=== PATIENT | male | born 1980 | race Caucasian/White ===

== ENCOUNTER 2016-12-23 21:06 | Observation (INO) ==
[2016-12-24 00:03] LABS: Basophils # 0.1 K/mcL (0.0-0.2); Basophils % 0.6 %; Eosinophils # 0.3 K/mcL (0.0-0.6); Hemoglobin 13.3 g/dL (12.9-16.9); Immature Granulocytes % 0.5 % (0-4); Lymphocytes # 3.2 K/mcL (0.6-4.6); Lymphocytes % 31.6 %; Mean Corpuscular HGB Conc 34.1 g/dL (31.6-35.5); Mean Corpuscular Hemoglobin 29.4 pg (28.0-33.3); Mean Corpuscular Volume 86.1 fL (83.0-100.0); Mean Platelet Volume 8.2 fL (9.4-12.4); Monocytes # 0.8 K/mcL (0.0-1.3); Monocytes % 8.3 %; Neutrophils # 5.7 K/mcL (1.6-8.9); Platelet Count 282 K/mcL (140-400); Red Blood Count 4.53 M/mcL (4.19-5.50); Red Cell Distribution Width 11.7 % (11.5-14.5)
--- NOTE | 2016-12-24 00:13 | Emergency Department Note ---
Disposition Clinical Impression: Right forearm cellulitis Disposition: Admitted As Inpatient Condition: Good Time of Disposition: 07:40 Skin/Abscess/FB HPI Chief complaint: ED Skin/Abscess/Foreign Body Stated complaint: "Abcess on Right Arm" Time Seen by Provider: 12/23/16 22:58 Source: patient Mode of arrival: ambulatory Limitations: no limitations Nursing Notes Reviewed: Yes Vital Signs Reviewed: Yes HPI Narrative: Patient is a 36-year-old male with past medical history of IV drug use. He presents today due to right forearm abscess. Patient states that this is not present for several days. He was recently an inpatient rehabilitation facility was receiving treatment there, also received PO antibiotics for right forearm abscess. He states that he was discharged what issue days ago and was not sent home with any antibiotics. He said that the abscess "burst "and drained a lot of pus within the past 24 hours. He has noticed significantly worsened pain, redness that is now tracking to his forearm, upper arm up to the axilla, and swelling. He does admit to injecting heroin in the region of the abscess. He is also injected meth and that same arm. Denies any loss of needles in the extremity. Denies any nausea, vomiting, fevers, abdominal pain, chest pain, shortness of breath. Previous Rx's Medication Instructions Recorded Hydrocodone/Acetaminophen [[place] 1 - 2 each PO Q6H PRN #15 tablet 09/06/15 5-325 Tablet] Aloe Vera 170 gm TP QID 5 Days 04/28/16 Ibuprofen [Motrin] 800 mg PO Q8HR #30 tablet 04/28/16 Amoxicillin/Clavulanate [Augmentin] 875 mg PO BIDWM 7 Days 06/27/16 Sulfamethoxazole/Trimeth DS 1 each PO BID 7 Days 06/27/16 [Bactrim DS] Allergies Allergy/AdvReac Type Severity Reaction Status Date / Time No Known Allergies Allergy Verified 09/06/15 13:44 Constitutional: Denies: fever Eyes: Denies: eye pain, eye discharge ENT ED: Denies: ear pain, throat pain Cardiovascular: Denies: chest pain, palpitations Respiratory: Denies: cough, dyspnea, wheezes, hemoptysis Gastrointestinal: Denies: abdominal pain, nausea, vomiting, diarrhea Genitourinary: Denies: urgency, dysuria, frequency Musculoskeletal: Denies: back pain, neck pain, joint swelling Integumentary: Reports: lesions. Denies: rash Neurological: Denies: headache, weakness, numbness, paresthesias Past Medical History - Past Medical History Attestation: Yes The following information was validated with the patient. Medical history: Reports: non-contributory, hepatitis Surgical history: Reports: no surgical history Psychiatric history: Reports: no psych history - Social History Smoking Status: Current every day smoker Smokeless Tobacco Status: No Alcohol use: Reports: none Drug use: Reports: none Physical Exam - General Limitations: no limitations General appearance: alert, in no apparent distress - Head Head exam: atraumatic, normocephalic, normal inspection - Eye Eye exam: Present: normal appearance, PERRL, EOMI - ENT ENT exam: normal exam, normal oropharynx, mucous membranes moist - Neck Neck exam: Present: normal inspection, full ROM, trachea midline - Chest Chest inspection: Present: normal inspection, symmetric chest wall rise - Respiratory Respiratory exam: Present: normal lung sounds bilaterally - Cardiovascular Cardiovascular exam: Present: regular rate, normal rhythm, normal heart sounds - Abdominal Exam Abdominal exam: Present: soft, Non-Tender. Absent: tenderness, distention, guarding, rebound, rigidity - Extremities Exam Extremities exam: Present: other (Patient has a large area of induration of the right medial forearm approximately 10 cm x 5 cm, erythema tracking distally to the hand and proximally up to the axilla. Also has swelling of the right hand. Tender to palpation.) - Back Exam Back exam: Present: normal inspection, full ROM. Absent: tenderness - Neurological Exam Neurological exam: Present: alert, oriented X3. Absent: motor sensory deficit - Psychiatric Psychiatric exam: Present: normal affect, normal mood - Skin Skin exam: Present: warm, dry, intact, normal color Course Course Narrative: Vitals WNL. Physical exam shows : Patient has a large area of induration of the right medial forearm approximately 10 cm x 5 cm, erythema tracking distally to the hand and proximally up to the axilla. Also has swelling of the right hand. Tender to palpation. We will obtain basic blood work, blood cultures, CT of the right forearm with contrast. We will start in about a comfortable culture is drawn. CT showed Small subcutaneous abscess along the proximal aspect of the forearm. Started vanc and zosyn. Admitted for right forearm cellulitis. Forearm CT 12/24/16 23:17 IMPRESSION: Small subcutaneous abscess along the proximal aspect of the forearm. D/ / Micha Nash MD / Micha Nash MD Interpreting Provider: Micha Nash MD Vital Signs Temperature 98.1 F 12/23/16 21:20 Pulse Rate 95 12/23/16 21:20 Respiratory Rate 18 12/23/16 21:20 Blood Pressure 128/89 12/23/16 21:20 O2 Sat by Pulse Oximetry 97 12/23/16 21:20 Temperature 97.6 F 12/24/16 04:00 Pulse Rate 78 12/24/16 04:00 Respiratory Rate 18 12/24/16 04:00 Blood Pressure 119/71 12/24/16 04:00 O2 Sat by Pulse Oximetry 99 12/24/16 05:38 Oxygen Delivery Oxygen Delivery Room Air Skin/Abscess/Foreign Body - MDM Narrative Medical decision making narrative: Vitals WNL. Physical exam shows : Patient has a large area of induration of the right medial forearm approximately 10 cm x 5 cm, erythema tracking distally to the hand and proximally up to the axilla. Also has swelling of the right hand. Tender to palpation. We will obtain basic blood work, blood cultures, CT of the right forearm with contrast. We will start in about a comfortable culture is drawn. CT showed Small subcutaneous abscess along the proximal aspect of the forearm. Started vanc and zosyn. Admitted for right forearm cellulitis. - Lab Data Lab results reviewed: Yes I reviewed the patient's lab results. Result diagrams: 12/23/16 23:55 12/23/16 23:55 Lab Results 12/23/16 12/23/16 12/23/16 Range/Units 23:55 23:55 23:55 WBC 10.1 (4.3-11.1) K/mcL RBC 4.53 (4.19-5.50) M/mcL Hgb 13.3 (12.9-16.9) g/dL Hct 39.0 (37.5-50.1) % MCV 86.1 (83.0-100.0) fL MCH 29.4 (28.0-33.3) pg MCHC 34.1 (31.6-35.5) g/dL RDW 11.7 (11.5-14.5) % Plt Count 282 (140-400) K/mcL MPV 8.2 L (9.4-12.4) fL Immature Gran % 0.5 (0-4) % Seg Neutrophils % 56.0 % Lymphocytes % 31.6 % Monocytes % 8.3 % Eosinophils % 3.0 % Basophils % 0.6 % Neutrophils # 5.7 (1.6-8.9) K/mcL Lymphocytes # 3.2 (0.6-4.6) K/mcL Monocytes # 0.8 (0.0-1.3) K/mcL Eosinophils # 0.3 (0.0-0.6) K/mcL Basophils # 0.1 (0.0-0.2) K/mcL ESR 30 H (0-10) mm/hr Sodium 139 (136-145) mEq/L Potassium 4.2 (3.5-4.5) mEq/L Chloride 104 (98-109) mEq/L Carbon Dioxide 28 (19-29) mEq/L BUN 17 (8-26) mg/dL Creatinine 1.09 (0.72-1.25) mg/dL Est GFR ( Amer) > 60 (> 60) Est GFR (Non-Af Amer) > 60 (> 60) BUN/Creatinine Ratio 16 (6-26) Glucose 171 H (70-99) mg/dL Calculated Osmolality 294 (280-300) Calcium 9.1 (8.6-10.8) mg/dL C-Reactive Protein 27 H (Less than 5) mg/L - Radiology Data Radiology results reviewed: Yes I reviewed the patient's radiology results. Forearm CT 12/24/16 23:17 IMPRESSION: Small subcutaneous abscess along the proximal aspect of the forearm. D/ / Micha Nash MD / Micha Nash MD Interpreting Provider: Micha Nash MD S.B.A.R. - S.B.A.R. Situation: Demographics, MOA Background: Presenting Complaint, Relevant PMH, Meds, & Allergies Assessment: Vital Signs, Course and respsone to treatment, Exam Concerns, Patient/Family Expectation, Pertinant Lab Results, Outstanding Labs Recommendation: Barrier(s) to disposition, Recommendation based on pending studies, treatments, or consults S.B.A.R. Report Given to: Dr. Roth Attestation Statement - Attestation Attestation: I, Harrison Nixon MD, personally performed a history and physical exam of the patient and discussed their management with the resident. I reviewed the resident's note and agree with the documented findings, medical decision making , and plan of care. 36-year-old male persisted emergency department with a complaint of an abscess to the right forearm which started about a week ago. He does admit to a history of IV drug abuse. He was admitted 5 days ago to a drug detox program in [place]. He states that while he was there they gave him some oral antibiotics and the symptoms improved. He was discharged from there 2 days ago but was not sent home with antibiotics. Since discharge the abscess got significantly worse and started draining spontaneously yesterday. Today he has increased redness and swelling of the entire arm with red streaks extending up to the axilla and swelling of the forearm and hand. No loss of movement or feeling. He has not noticed any fever. On examination patient is a well-developed well-nourished male in no acute distress. He is alert and oriented 3. There is no cyanosis or diaphoresis. Patient has a large swollen tender area to the proximal right forearm with an open wound and small amount of spontaneous. And drainage. There is erythema extending up the medial aspect of the arm to the axilla. There is also some erythema extending down to the wrist with edema entire arm and hand. Normal neurovascular function. Labs reviewed. CT of the arm showed a small subcutaneous fluid collection of the proximal right forearm with moderate subcutaneous stranding and inflammation. We will consult the hospitalist for admission for IV antibiotics.
[2016-12-24 00:24] LABS: BUN/Creatinine Ratio 16 (6-26); Blood Urea Nitrogen 17 mg/dL (8-26); C-Reactive Protein 27 mg/L (Less than 5); Calcium 9.1 mg/dL (8.6-10.8); Carbon Dioxide 28 mEq/L (19-29); Chloride 104 mEq/L (98-109); Glucose 171 mg/dL (70-99); Osmolality,Calculated 294 (280-300); Potassium 4.2 mEq/L (3.5-4.5); Sodium 139 mEq/L (136-145); eGFR For African Americans > 60 (> 60); eGFR For Non-African Americans > 60 (> 60)
[2016-12-24] MEDS ORDERED: Vancomycin 1,000 MG VIAL ONE (03:00)
[2016-12-24] MEDS ORDERED: Piperacillin/Tazobactam 3.375 GM VIAL IVPB ONE (03:00)
[2016-12-24] MEDS ORDERED: 0.9 % Sodium Chloride 250 ML ONE (03:00)
[2016-12-24] MEDS ORDERED: D5% in Water (Mini-Bag+) 100 ML IVPB ONE (03:00)
--- NOTE | 2016-12-24 05:31 | Internal Med History&Physical ---
<Lis Qureshi - Last Filed: 12/29/16 19:29> Date of Encounter: 12/24/16 Time of Encounter: 05:14 Assessment and Plan (1) Abscess of forearm, right Status: Acute likely secondary to repeated IVDU most likely MRSA start zosyn and vanc IV blood ctx x2 r/o hematologic spread to heart supportive care hold home bactrim after abx initiation of 2-3 days will need I&D dependant on extension of infection into soft tissue and musculature of arm will need either general or orthopedic surgery consult (2) Cellulitis of right upper extremity Status: Acute likely secondary to repeated IVDU most likely MRSA start zosyn and vanc IV blood ctx x2 r/o hematologic spread to heart supportive care hold home bactrim after abx initiation of 2-3 days will need I&D dependant on extension of infection into soft tissue and musculature of arm will need either general or orthopedic surgery consult (3) IVDU (intravenous drug user) Status: Chronic recent use of Heroin meth, crack, cocaine treatment of acute IVD related infection blood ctx for hem spread UDS toradol tyelonol for pain prn phenergan and zofran for nausea prn clonidine for HTN prn hydroxazine for anxiety prn trazadone (4) Heroin addiction Status: Chronic (5) Opiate abuse, continuous Status: Chronic (6) Hepatitis C Status: Chronic Qualifiers: Viral hepatitis chronicity: unspecified Hepatic coma status: without hepatic coma Qualified Code(s): B19.20 - Unspecified viral hepatitis C without hepatic coma Internal Medicine - H&P: HPI Chief complaint: right arm abcess Admitted From: Home Plans for Post Hospital Care: Home History of present illness: Mr. Johnson is a 36 year old male c/o R arm pain with abcess. PMHx of HepC, opiate abuse, IVDU of heroine and meth. Pt states abscess appeared on right elbow about a week ago after one day injecting drugs to that area. At this time is was confined to the elbow. Two days later pt injected meth to the same arm higher up on the same vein which caused infection to spread down to farearm hand and digits and up to the armpit. Pt c/o worsening pain, swelling, redness with decreased elbo flexion, and wrist flexion and extension secondary to pain and swelling. Also has some nausea. Pt recently was in rehab center in [place] where he was being treated for withdrawal and infection. There he received 2 days of Bactrim abx. Pt states he left rehab center "because he wanted to be home and not up in [place]". He left with oral abx, one day later presented to ER. Pt states he had an abscess one other time when he was in snf Pt denies any other hospitalizations or ODs. Pt states entire R arm is sensitive to even light touch. Pt denies headache, fever, chills , numbness/tingling, loss of sensation in RUE, CP,palpitation, SOB. Past Med Surg Social Fam HX - Past Medical History Medical history: hepatitis, other (opiate abuse, IDVU) Psychiatric history: no psych history - Past Surgical History Surgical History: no surgical history - Social History Smoking Status: Current every day smoker Packs per day: 1 Smokeless Tobacco Status: No Alcohol use: none Drug use: cocaine, opiates, marijuana, methamphetamine, IVDU, prescription drug abuse Occupational status: employed Current living situation: Home Internal Medicine - H&P: Meds Buprenorphine HCl/Naloxone HCl [Suboxone 2 mg-0.5 mg Sl Film] 1 each SL BID [History] Gabapentin [Neurontin] 300 mg PO TID 12/24/16 [History] HydrOXYzine Pamoate [Hydroxyzine Pamoate] 25 mg PO TID PRN 12/24/16 [History] Nicotine Patch [Nicoderm] 21 mg TP DAILY 12/24/16 [History] Nicotine Polacrilex [Nicorelief] 4 mg PO Q2H PRN 12/24/16 [History] TraZODone 50 mg PO HS 12/24/16 [History] Sulfamethoxazole/Trimeth DS [Bactrim Ds] 1 each PO BID 7 Days 12/25/16 [Rx] Allergies No Known Allergies Allergy (Verified 09/06/15 13:44) All Systems PM: A 10-system review of systems was performed and is negative for pertinent findings except as documented above in the HPI. - Constitutional Constitutional: no chills, no fever(s), no night sweats - EENT Eyes: no change in vision, no discharge, no pain, no photophobia Ears: no ear discharge, no ear pain, no tinnitus - Cardiovascular Cardiovascular ROS IM: no chest pain, no diaphoresis, no dyspnea, no lightheadedness, no palpitations, no syncope - Respiratory Respiratory: no cough, no dyspnea, no wheezing, no excessive phlegm production - Gastrointestinal Gastrointestinal: nausea, no constipation, no diarrhea, no vomiting - Genitourinary Genitourinary ROS male: no difficulty urinating - Musculoskeletal Musculoskeletal ROS IM: as per HPI - Integumentary Integumentary IM: as per HPI - Neurological Neurological ROS: no confusion, no convulsions, no focal weakness, no numbness, no tingling, no tremor(s) - Constitutional Vitals: Temp Pulse Resp BP Pulse Ox 98.1 F 99 18 122/79 99 12/23/16 21:20 12/24/16 00:25 12/23/16 21:20 12/24/16 00:25 12/24/16 00:25 General appearance: Present: A&O X 3, no acute distress - Head Head exam: Present: atraumatic, normocephalic - Eye Eye exam: Present: EOMI, PERRL, conjuntiva pink, sclera anicteric - ENT ENT exam: Present: mucous membranes moist - Neck Neck exam general surgery: Present: supple, trachea midline. Absent: lymphadenopathy - Respiratory Respiratory exam: Present: CTAB. Absent: accessory muscle use, rales, rhonchi, wheezes - Cardiovascular Cardiovascular exam: Present: RRR, +S1, +S2. Absent: diastolic murmur, gallop, rubs, systolic murmur - GI/Abdominal GI/Abdominal exam: Present: normal bowel sounds, soft, no peritoneal signs. Absent: distended, tenderness - Extremities Exam Extremities exam: Present: normal capillary refill, radial pulses palpable and symetrical - Expanded Upper Extremities Exam Upper Arm exam: Present: erythema, swelling, tenderness Elbow exam: Present: erythema (open area with purulent drainage), pain w/ pronation/supination, swelling, tenderness. Absent: full ROM (decreased elbow extension, inciting pain) Forearm wrist exam: Present: erythema, swelling, tenderness. Absent: full ROM ( decreased wrist flexion and extension, inciting pain) Neuro motor exam: Present: fingers 2-5 abduction intact Neurosensory exam: Present: median nerve intact, radial nerve intact, ulnar nerve intact Vascular exam: Present: normal capillary refill, radial pulse right, radial pulse left - Neurological Exam Neurological exam: Present: CN II-XII intact - Skin Skin exam: Present: erythema, warm (with open wound at r elbow with purulant drainage) Internal Med - H&P Results - Labs CBC & Chem 7: 12/25/16 04:39 12/25/16 04:39 Labs: Short CBC 12/23/16 Range/Units 23:55 WBC 10.1 (4.3-11.1) K/mcL Hgb 13.3 (12.9-16.9) g/dL Hct 39.0 (37.5-50.1) % Plt Count 282 (140-400) K/mcL Neutrophils # 5.7 (1.6-8.9) K/mcL BMP 12/23/16 23:55 Sodium 139 Potassium 4.2 Chloride 104 Carbon Dioxide 28 BUN 17 Creatinine 1.09 Glucose 171 H Calcium 9.1 - Impressions ITS Impressions Forearm CT 12/24/16 23:17 IMPRESSION: Small subcutaneous abscess along the proximal aspect of the forearm. D/ / Micha Nash MD / Micha Nash MD Interpreting Provider: Micha Nash MD <GonzalezLoyd Fernandez - Last Filed: 12/30/16 01:12> Assessment and Plan (1) Polysubstance abuse Status: Chronic . (2) Nicotine dependence with nicotine-induced disorder Status: Acute . Qualifiers: Nicotine product type: cigarettes Qualified Code(s): F17.219 - Nicotine dependence, cigarettes, with unspecified nicotine-induced disorders (3) Abscess of forearm, right Status: Acute . (4) Cellulitis of right upper extremity Status: Acute . (5) Hepatitis C Status: Chronic . Qualifiers: Viral hepatitis chronicity: unspecified Hepatic coma status: without hepatic coma Qualified Code(s): B19.20 - Unspecified viral hepatitis C without hepatic coma (6) Heroin addiction Status: Chronic . (7) IVDU (intravenous drug user) Status: Chronic . (8) Opiate abuse, continuous Status: Chronic . Internal Medicine - H&P: HPI Admitted From: Emergency Dept Plans for Post Hospital Care: Home History of present illness: Mr. Johnson is a 36 year old male is admitted to [facility] via the emergency department when he presented with a chief complaint of the awareness of infection and abscess development in his right arm. The patient acknowledges a history of intravenous drug usage with recent injection of veins in his right arm. He presents at this time after having failed outpatient attempts of treatment. Patient was visited and interviewed and examined. I examined this patient and my medical decision-making was reviewed with the Resident Physician, Dr. Lis Qureshi. For this encounter, I have reviewed the documentation, treatment plan, and medical decision making. I agree with the documented findings, disposition and treatment plan as described except to the extent set forth below. Cumulative laboratory and radiographic database was reviewed, considered and discussed. Given the patient's presenting concerns, past medical history, clinical findings and symptoms, he is admitted at this time to undergo further evaluation and disposition. All Systems PM: A 10-system review of systems was performed and is negative for pertinent findings except as documented above in the HPI. - Constitutional Vitals: Temp Pulse Resp BP Pulse Ox 97.8 F 62 16 97/54 99 12/25/16 11:08 12/25/16 11:08 12/25/16 11:08 12/25/16 11:08 12/25/16 11:08 Internal Med - H&P Results - Labs CBC & Chem 7: 12/25/16 04:39 12/25/16 04:39 Labs: Abnormal lab results MPV 8.9 fL (9.4-12.4) L 12/25/16 04:39 ESR 30 mm/hr (0-10) H 12/23/16 23:55 Potassium 5.2 mEq/L (3.5-4.5) H 12/25/16 04:39 C-Reactive Protein 27 mg/L (Less than 5) H 12/23/16 23:55 Laboratory Last Values WBC 9.1 K/mcL (4.3-11.1) 12/25/16 04:39 RBC 4.54 M/mcL (4.19-5.50) 12/25/16 04:39 Hgb 13.4 g/dL (12.9-16.9) 12/25/16 04:39 Hct 38.9 % (37.5-50.1) 12/25/16 04:39 MCV 85.7 fL (83.0-100.0) 12/25/16 04:39 MCH 29.5 pg (28.0-33.3) 12/25/16 04:39 MCHC 34.4 g/dL (31.6-35.5) 12/25/16 04:39 RDW 11.8 % (11.5-14.5) 12/25/16 04:39 Plt Count 306 K/mcL (140-400) 12/25/16 04:39 MPV 8.9 fL (9.4-12.4) L 12/25/16 04:39 Immature Gran % 0.9 % (0-4) 12/25/16 04:39 Seg Neutrophils % 50.2 % 12/25/16 04:39 Lymphocytes % 37.4 % 12/25/16 04:39 Monocytes % 6.6 % 12/25/16 04:39 Eosinophils % 4.1 % 12/25/16 04:39 Basophils % 0.8 % 12/25/16 04:39 Neutrophils # 4.6 K/mcL (1.6-8.9) 12/25/16 04:39 Lymphocytes # 3.4 K/mcL (0.6-4.6) 12/25/16 04:39 Monocytes # 0.6 K/mcL (0.0-1.3) 12/25/16 04:39 Eosinophils # 0.4 K/mcL (0.0-0.6) 12/25/16 04:39 Basophils # 0.1 K/mcL (0.0-0.2) 12/25/16 04:39 ESR 30 mm/hr (0-10) H 12/23/16 23:55 Sodium 138 mEq/L (136-145) 12/25/16 04:39 Potassium 5.2 mEq/L (3.5-4.5) H 12/25/16 04:39 Chloride 107 mEq/L (98-109) 12/25/16 04:39 Carbon Dioxide 24 mEq/L (19-29) 12/25/16 04:39 BUN 13 mg/dL (8-26) 12/25/16 04:39 Creatinine 1.15 mg/dL (0.72-1.25) 12/25/16 04:39 Est GFR ( Amer) > 60 (> 60) 12/25/16 04:39 Est GFR (Non-Af Amer) > 60 (> 60) 12/25/16 04:39 BUN/Creatinine Ratio 11 (6-26) 12/25/16 04:39 Glucose 98 mg/dL (70-99) 12/25/16 04:39 Calculated Osmolality 286 (280-300) 12/25/16 04:39 Calcium 8.6 mg/dL (8.6-10.8) 12/25/16 04:39 C-Reactive Protein 27 mg/L (Less than 5) H 12/23/16 23:55 - Impressions ITS Impressions Forearm CT 12/24/16 23:17 IMPRESSION: Small subcutaneous abscess along the proximal aspect of the forearm. D/ / Micha Nash MD / Micha Nash MD Interpreting Provider: Micha Nash MD - Attending Attestation My signature below is to certify that this patient is under my care and that I, or the Resident Physician working with me, has had a [id number] encounter with this patient. Plan of care has been reviewed and discussed in detail with the patient. Questions were addressed. Advance care directive discussion briefly addressed. The patient does not declare any healthcare restrictions at this time. Outpatient medication schedules will be reviewed, confirmed and facilitated as appropriate. Reconciliation of home treatments including adjustments, substitutions and reintroduction into the treatment regimen will address necessary maintenance therapies for chronic pre-existing medical conditions. Smoking cessation counseling briefly addressed. The patient accepts nicotine substitution during this admission. Hospital course dictated by clinical findings, response and potential consultative interventions. Consultative opinions will be sought as clinical circumstances justify. The patient is at risk for further acute clinical decline and morbidity given his presenting chief complaint and comorbid conditions. Condition is serious. Prognosis is guarded. CODE STATUS is full.
[2016-12-24] MEDS ORDERED: Vancomycin 1,000 MG in D5% in Water 250 ML IVPB ONE (05:42)
[2016-12-24] MEDS ORDERED: Piperacillin/Tazobactam 3.375 GM in D5% in Water (Mini-Bag+) 100 ML IVPB ONE (05:43)
[2016-12-24] MEDS ORDERED: Naloxone 0.4 MG/ML INJ IVP PRN (12:46)
[2016-12-24] MEDS ORDERED: hydrOXYzine pamoate 25 MG CAPSULE PO PRN (12:47)
[2016-12-24] MEDS: *HR* OxyCODONE Immed Rel 5 MG TABLET PO PRN ×2 (12:54→20:00)
[2016-12-24] MEDS: Piperacillin/Tazobactam 3.375 GM in D5% in Water (Mini-Bag+) 100 ML IVPB SCH ×2 (14:18→14:28)
[2016-12-24] MEDS: Gabapentin 300 MG CAPSULE PO SCH ×2 (14:22→21:20)
--- NOTE | 2016-12-24 14:47 | Event Note ---
Date of Encounter: 12/24/16 Time of Encounter: 14:45 Patient seen at the bedside. Admitted for right arm swelling and pain. History of IV drug abuse, shot IV drug week ago, was started on Bactrim as outpatient. Given worsening redness and swelling of the arm he came into ED. CT of the forearm was done which shows small subcutaneous abscess with cellulitis. He is started on IV vancomycin and Zosyn, will consult orthopedics. We will follow recommendations. Adequate pain control.
[2016-12-24 15:00] LABS: Basophils # 0.1 K/mcL (0.0-0.2); Basophils % 0.6 %; Eosinophils # 0.4 K/mcL (0.0-0.6); Eosinophils % 4.5 %; Hematocrit 38.4 % (37.5-50.1); Hemoglobin 13.1 g/dL (12.9-16.9); Immature Granulocytes % 0.7 % (0-4); Lymphocytes # 3.1 K/mcL (0.6-4.6); Lymphocytes % 37.9 %; Mean Corpuscular HGB Conc 34.1 g/dL (31.6-35.5); Mean Corpuscular Hemoglobin 29.8 pg (28.0-33.3); Mean Corpuscular Volume 87.3 fL (83.0-100.0); Mean Platelet Volume 8.6 fL (9.4-12.4); Monocytes # 0.6 K/mcL (0.0-1.3); Monocytes % 7.2 %; Platelet Count 283 K/mcL (140-400); Red Cell Distribution Width 11.8 % (11.5-14.5); Segmented Neutrophils % 49.1 %
[2016-12-24 15:14] LABS: BUN/Creatinine Ratio 13 (6-26); Blood Urea Nitrogen 14 mg/dL (8-26); Calcium 8.8 mg/dL (8.6-10.8); Carbon Dioxide 26 mEq/L (19-29); Chloride 105 mEq/L (98-109); Glucose 102 mg/dL (70-99); Osmolality,Calculated 287 (280-300); Potassium 4.5 mEq/L (3.5-4.5); Sodium 138 mEq/L (136-145); eGFR For African Americans > 60 (> 60); eGFR For Non-African Americans > 60 (> 60)
[2016-12-24] MEDS: Vancomycin 1,000 MG in D5% in Water 250 ML IVPB SCH (17:06)
[2016-12-24] MEDS ORDERED: Lidocaine/EPI 1:100k 1% 50 ML VIAL INFILT ONE (17:51)
[2016-12-24] MEDS ORDERED: traZODone 50 MG TABLET PO SCH (21:00)
--- NOTE | 2016-12-24 21:23 | Orthopedic Consult Note ---
Date of Encounter: 12/24/16 Time of Encounter: 19:00 Assessment and Plan (1) Abscess of forearm, right Current Visit: Yes Status: Acute I discussed the diagnosis in detail with the patient. He has a superficial abscess of the right dorsal proximal forearm region. I discussed treatment options including observation with continued antibiotics versus incision, drainage, irrigation, and debridement. I did recommend the I and D in order to adequately treat the infection. After informed consent was obtained I did sterilize the area and infiltrate the area with 10 mL of 1% lidocaine with epinephrine. I did set up a sterile field and open the area of ulceration with a hemostat and spread circumferentially. There is no significant grossly purulent drainage, however area did track circumferentially around the area of ulceration and I could palpate the cavity seen on CT scan. I did culture the area and packed open. A sterile dressing was placed. The patient overall looks good clinically, he has a normal white count, and minimal cellulitis. My recommendation is for discharge on oral antibiotics and follow up with me in 1 week's time. I did discuss with the patient daily dressing changes, peroxide soaks, and repacking. He did verbalize understanding and will see me in 1 week. He will return sooner or call the office for any worsening symptoms. History of Present Illness HPI: Mr. Johnson is a 36 year old male who is admitted to the hospitalist due to an infection of the right proximal forearm region. The patient is an IV drug user and has had about a week of symptoms after injection into the area of involvement. This is localized to the proximal dorsal forearm region. He is complaining of pain isolated to this area without any numbness or tingling or any other associated signs or symptoms. Pain is worse with movement and better at rest. He denies any other infections. He denies any feelings of illness. He indicates that the pain has worsened over the course of the last week up to the time of admission. The pain is described as sharp. Past Med Surg Social Fam HX - Past Medical History Medical history: hepatitis, other (opiate abuse, IDVU) Psychiatric history: no psych history - Past Surgical History Surgical History: no surgical history - Social History Smoking Status: Current every day smoker Packs per day: 1 Smokeless Tobacco Status: No Alcohol use: none Drug use: cocaine, opiates, marijuana, methamphetamine, IVDU, prescription drug abuse Medications and Allergies Sulfamethoxazole/Trimeth DS [Bactrim DS] 1 each PO BID 7 Days 06/27/16 [Rx] Buprenorphine HCl/Naloxone HCl [Suboxone 2 mg-0.5 mg Sl Film] 1 each SL BID [History] Gabapentin [Neurontin] 300 mg PO TID 12/24/16 [History] HydrOXYzine Pamoate [Hydroxyzine Pamoate] 25 mg PO TID PRN 12/24/16 [History] Nicotine Patch [Nicoderm] 21 mg TP DAILY 12/24/16 [History] Nicotine Polacrilex [Nicorelief] 4 mg PO Q2H PRN 12/24/16 [History] TraZODone 50 mg PO HS 12/24/16 [History] Allergies No Known Allergies Allergy (Verified 09/06/15 13:44) All Systems Reviewed: Constitutional and musculoskeletal systems were reviewed and are negative unless otherwise stated in history of present illness. Physical Exam - Constitutional Vitals: Temp Pulse Resp BP Pulse Ox 97.6 F 62 17 101/65 98 12/24/16 19:57 12/24/16 19:57 12/24/16 19:57 12/24/16 19:57 12/24/16 19:57 CONSTITUTIONAL -Vitals reviewed -The patient is well developed, well nourished, well groomed PSYCHIATRIC -Fully alert and oriented x 3 -Pleasant mood RIGHT UPPER EXTREMITY Evaluation does show a 4 mm in diameter area of ulceration from the dorsal proximal forearm area several centimeters distal to the olecranon. There is mild surrounding swelling. There is tenderness to palpation in this area with minimal cellulitis. No induration is noted. The skin is otherwise intact. He has full active motion of the shoulder, elbow, wrist and fingers. The patient can actively flex and extend all digits, extend the thumb, cross the index and long fingers, make an okay sign, and oppose the thumb. The fingertips are all sensate and well-perfused with a 2+ radial artery pulse. Results - Labs Result Diagrams: 12/24/16 14:46 12/24/16 14:46 Labs: Abnormal lab results MPV 8.6 fL (9.4-12.4) L 12/24/16 14:46 ESR 30 mm/hr (0-10) H 12/23/16 23:55 Glucose 102 mg/dL (70-99) H 12/24/16 14:46 C-Reactive Protein 27 mg/L (Less than 5) H 12/23/16 23:55 H & H 12/24/16 Range/Units 14:46 Hgb 13.1 (12.9-16.9) g/dL Hct 38.4 (37.5-50.1) % All other labs normal. - Diagnostic results Elbow CT: image reviewed (CT of the right forearm region does show a superficial abscess along the area of ulceration.) Consult Discharge Plan - Plan Referrals: NO,PCP [Primary Care Provider] -
[2016-12-25] MEDS: Piperacillin/Tazobactam 3.375 GM in D5% in Water (Mini-Bag+) 100 ML IVPB SCH ×2 (00:31→08:06)
[2016-12-25] MEDS: *HR* OxyCODONE Immed Rel 5 MG TABLET PO PRN (04:33)
[2016-12-25] MEDS: Vancomycin 1,000 MG in D5% in Water 250 ML IVPB SCH (04:35)
[2016-12-25 05:22] LABS: Basophils # 0.1 K/mcL (0.0-0.2); Basophils % 0.8 %; Eosinophils # 0.4 K/mcL (0.0-0.6); Eosinophils % 4.1 %; Hematocrit 38.9 % (37.5-50.1); Hemoglobin 13.4 g/dL (12.9-16.9); Immature Granulocytes % 0.9 % (0-4); Lymphocytes # 3.4 K/mcL (0.6-4.6); Lymphocytes % 37.4 %; Mean Corpuscular HGB Conc 34.4 g/dL (31.6-35.5); Mean Corpuscular Hemoglobin 29.5 pg (28.0-33.3); Mean Corpuscular Volume 85.7 fL (83.0-100.0); Mean Platelet Volume 8.9 fL (9.4-12.4); Monocytes # 0.6 K/mcL (0.0-1.3); Monocytes % 6.6 %; Neutrophils # 4.6 K/mcL (1.6-8.9); Platelet Count 306 K/mcL (140-400); Red Blood Count 4.54 M/mcL (4.19-5.50); Red Cell Distribution Width 11.8 % (11.5-14.5); Segmented Neutrophils % 50.2 %
[2016-12-25 05:23] LABS: BUN/Creatinine Ratio 11 (6-26); Blood Urea Nitrogen 13 mg/dL (8-26); Calcium 8.6 mg/dL (8.6-10.8); Carbon Dioxide 24 mEq/L (19-29); Chloride 107 mEq/L (98-109); Glucose 98 mg/dL (70-99); Osmolality,Calculated 286 (280-300); Sodium 138 mEq/L (136-145); eGFR For African Americans > 60 (> 60); eGFR For Non-African Americans > 60 (> 60)
[2016-12-25 05:30] LABS: Potassium 5.2 mEq/L (3.5-4.5)
[2016-12-25] MEDS: Gabapentin 300 MG CAPSULE PO SCH (08:07)
[2016-12-25 11:31] VITALS: BP 97/54
--- NOTE | 2016-12-25 13:54 | Discharge Summary ---
Date of Encounter: 12/25/16 Time of Encounter: 10:30 - Discharge Diagnosis (1) Abscess of forearm, right Priority: Primary Status: Acute (2) Hepatitis C Priority: Secondary Status: Chronic Qualifiers: Viral hepatitis chronicity: unspecified Hepatic coma status: without hepatic coma Qualified Code(s): B19.20 - Unspecified viral hepatitis C without hepatic coma (3) Heroin addiction Priority: Secondary Status: Chronic (4) IVDU (intravenous drug user) Priority: Secondary Status: Chronic (5) Opiate abuse, continuous Priority: Secondary Status: Chronic - Discharge Medications Prescriptions: Sulfamethoxazole/Trimeth DS [Bactrim Ds] 1 each PO BID 7 Days Home Medications: Buprenorphine HCl/Naloxone HCl [Suboxone 2 mg-0.5 mg Sl Film] 1 each SL BID [History] Gabapentin [Neurontin] 300 mg PO TID 12/24/16 [History] HydrOXYzine Pamoate [Hydroxyzine Pamoate] 25 mg PO TID PRN 12/24/16 [History] Nicotine Patch [Nicoderm] 21 mg TP DAILY 12/24/16 [History] Nicotine Polacrilex [Nicorelief] 4 mg PO Q2H PRN 12/24/16 [History] TraZODone 50 mg PO HS 12/24/16 [History] Sulfamethoxazole/Trimeth DS [Bactrim Ds] 1 each PO BID 7 Days 12/25/16 [Rx] Allergies/Adverse Reactions: Allergies No Known Allergies Allergy (Verified 09/06/15 13:44) Date of admission: 12/24/16 05:26 Primary care physician: PCP NO Consults: 12/24/16 14:44 Consult to Orthopedic Surgery [CONS] Routine Consulting Provider: [facility] Reason for Consult: please evlauate for rt. arm cellulitis with small subcutaneous abscess in a IVDA patient. Call Completed: Yes - Patient Status Disposition: Left Against Medical Advice Condition: Good Overall status at discharge: patient is not back to baseline - Discharge Instructions Follow Up With: NO,PCP [Primary Care Provider] - - Diet and Activity Activity: resume usual activities as tolerated Diet: regular diet Interval History: pt is eager to go home. his right arm swelling is the same. Hospital course: Mr. Johnson is a 36 year old male with pmh of IVDA who presents with right arm swelling and pain. Ct right forearm shows subcutaneous stranding of fat and edema along dorsal aspect of the forearm with a small rim enhancing fluid collection 2.9x2.4x1.4 cm. Pt underwent I/D on 12/24. wound culture pending. PLAN: bactrim for 7 days. f.u in the ortho clinic. - Time Spent with Patient Total time spent providing and/or coordinating discharge services: - Constitutional Vitals: Temp Pulse Resp BP Pulse Ox 97.8 F 62 16 97/54 99 12/25/16 11:08 12/25/16 11:08 12/25/16 11:08 12/25/16 11:08 12/25/16 11:08 General appearance: Present: A&O X 3, no acute distress - Eye Eye exam: Present: PERRL, sclera anicteric - Neck Neck exam general surgery: Present: supple, trachea midline. Absent: lymphadenopathy - Respiratory Respiratory exam: Present: CTAB - Cardiovascular Cardiovascular exam: Present: RRR - GI/Abdominal GI/Abdominal exam: Present: normal bowel sounds, soft. Absent: distended, tenderness - Extremities Exam Extremities exam: Absent: pedal edema - Back Exam Back exam: Absent: CVA tenderness (L), CVA tenderness (R) - Neurological Exam Neurological exam: Present: alert, oriented X3, no focal deficits, strengths equal and symetr throughout. Absent: facial droop, speech deficit - Skin Additional comments: right forearm: s/p I/D of abscess. there is a drain at site.
[2016-12-25] MEDS ORDERED: Aminoglycoside Consult 1 EACH MC ONE (13:59)
[2016-12-25] MEDS ORDERED: Vancomycin 1,000 MG in D5% in Water 250 ML IVPB SCH ×2 (14:00→17:00)
== END 2016-12-25 14:00 | disposition left against medical advice (07) ==
LOC: EMEROO 21:06 → 3NENU 21:06 → SUATTDRO 12-24 05:26
PROVIDERS: ADMIT Internal Medicine; ATTEND Internal Medicine